=== PATIENT | female | born 1950 | race Two or more races ===

== ENCOUNTER 2019-03-04 15:39 | Inpatient (IN) | payer OTHER ==
[~2019-03-04] VITALS: Ht 165.1 cm; Wt 55.8 kg
[2019-03-04] MEDS ORDERED: PERCOCET 10-321 EACH (16:12)
[2019-03-04] MEDS ORDERED: METFORMIN HCL500 MG (16:12)
[2019-03-04] MEDS ORDERED: DURAGESIC1 EAC1 (16:12)
[2019-03-04] MEDS ORDERED: GEMFIBROZIL600 MG (17:15)
[2019-03-04] MEDS ORDERED: LEVOTHYROXINE25 MCG (17:15)
[2019-03-19] MEDS ORDERED: CARAFATE1 GM PO (13:22)
[2019-03-19] MEDS ORDERED: ACIDOPHILUS-PE1 EAC2 PO (13:22)
[2019-03-19] MEDS ORDERED: CALCIUM 500 +1 EACH PO (13:22)
[2019-03-19] MEDS ORDERED: CYMBALTA30 MG PO (13:23)
[2019-03-19] MEDS ORDERED: GABAPENTIN100 MG PO (13:23)
[2019-03-19] MEDS ORDERED: VIRT-PHOS 250250 MG PO (13:25)
== END 2019-03-19 15:18 | disposition home or self-care (01) | DRG 683 ==
LOC: ER 15:39 → SEC-K 03-05 09:17 → SURH 03-05 09:17 → MEDJ 03-05 12:09 → SURG 03-05 13:15 → SURH 03-07 18:49
PROVIDERS: ADMIT Internal Medicine
PROC: BT4JZZZ Ultrasonography of Kidneys and Bladder (ICD-10-PCS; principal; 2019-03-05)
PROC: 4A12X4Z Monitoring of Cardiac Electrical Activity, External Approach (ICD-10-PCS; 2019-03-05)
PROC: 30233N1 Transfusion of Nonautologous Red Blood Cells into Peripheral Vein, Percutaneous Approach (ICD-10-PCS; 2019-03-05)
PROC: CP1Z1ZZ Planar Nuclear Medicine Imaging of Musculoskeletal System, All using Technetium 99m (Tc-99m) (ICD-10-PCS; 2019-03-05)
PROC: 8E0ZXY6 Isolation (ICD-10-PCS; 2019-03-07)
PROC: BW4GZZZ Ultrasonography of Pelvic Region (ICD-10-PCS; 2019-03-08)
DX: N17.8 Other acute kidney failure (principal); R18.8 Other ascites; N30.01 Acute cystitis with hematuria; D62 Acute posthemorrhagic anemia; E83.52 Hypercalcemia; E87.6 Hypokalemia; N93.8 Other specified abnormal uterine and vaginal bleeding; E03.8 Other specified hypothyroidism; K57.30 Diverticulosis of large intestine without perforation or abscess without bleeding; E78.49 Other hyperlipidemia; D63.8 Anemia in other chronic diseases classified elsewhere; E11.65 Type 2 diabetes mellitus with hyperglycemia; Z79.4 Long term (current) use of insulin; Z85.72 Personal history of non-Hodgkin lymphomas; Z08 Encounter for follow-up examination after completed treatment for malignant neoplasm

== ENCOUNTER 2019-04-19 14:49 | Inpatient (IN) | payer OTHER ==
[~2019-04-19] VITALS: Ht 160 cm; Wt 50.8 kg
[~2019-04-19 14:49] MED LIST: ACIDOPHILUS-PE1 EAC2 PO; CALCIUM 500 +1 EACH PO; CARAFATE1 GM PO; CYMBALTA30 MG PO; DURAGESIC1 EAC1; GABAPENTIN100 MG PO; GEMFIBROZIL600 MG; LEVOTHYROXINE25 MCG; METFORMIN HCL500 MG; PERCOCET 10-321 EACH; VIRT-PHOS 250250 MG PO
[2019-04-19] MEDS ORDERED: MEGESTROL ACETA40 MG (15:22)
[2019-04-19] MEDS ORDERED: METOPROLOL SUCC25 MG (15:22)
[2019-04-19] MEDS ORDERED: FUSION PLUS CA1 EACH (15:23)
[2019-04-19] MEDS ORDERED: STOOL SOFTENER240 MG (15:23)
[2019-04-27] MEDS ORDERED: PRE PROTEIN1 EACH PO (13:18)
== END 2019-04-27 14:29 | disposition home or self-care (01) | DRG 659 ==
LOC: ER 14:49 → SEC-K 21:11 → SURH 21:11
PROVIDERS: ADMIT Internal Medicine
PROC: 8E0ZXY6 Isolation (ICD-10-PCS; 2019-04-19)
PROC: 0WB Anatomical Regions, General, Excision (ICD-10-PCS; principal; 2019-04-26)
DX: N17.8 Other acute kidney failure (principal); I50.21 Acute systolic (congestive) heart failure; E87.1 Hypo-osmolality and hyponatremia; N30.00 Acute cystitis without hematuria; J90 Pleural effusion, not elsewhere classified; C85.93 Non-Hodgkin lymphoma, unspecified, intra-abdominal lymph nodes; E03.8 Other specified hypothyroidism; E83.52 Hypercalcemia; R19.04 Left lower quadrant abdominal swelling, mass and lump; D63.8 Anemia in other chronic diseases classified elsewhere; R19.09 Other intra-abdominal and pelvic swelling, mass and lump; E11.9 Type 2 diabetes mellitus without complications; I11.0 Hypertensive heart disease with heart failure; E86.0 Dehydration; Z79.4 Long term (current) use of insulin